=== PATIENT | male | born 1970 | race Caucasian/White ===

== ENCOUNTER 2021-02-25 17:38 | Emergency (ER) | payer OTHER, SELFPAY ==
[2021-02-25 17:39] VITALS: BP 150/90; PULSE 83; RESP 16; TEMP 36.9; O2SAT 97; BMI 21.0
--- NOTE | 2021-02-25 17:51 | EDS_ITS ---
HPI History of Present Illness Chief Complaint: Laceration Informant: patient Occured/Mechanism Comment: Rototiller esthela into leg Onset/Context/Timing Onset: Today Current Severity: Mild Maximum Severity: Moderate Narrative Narrative: Patient presents with laceration to the medial left ankle. He was using a Rototiller when one of the tines punctured his leg. Bleeding is under control at this time. Patient believes his last tetanus was between 5 and 10 years ago. [facility] Medical History Anxiety GERD (gastroesophageal reflux disease) Allergy/AdvReac Type Severity Reaction Status Date / Time cefdinir [From Omnicef] AdvReac Other Verified 02/25/21 17:41 Social History Smoking Status: Never smoker ROS ROS ED Constitutional Constitutional ED: Denies chills or fever(s) Eyes Eyes: Denies change in vision ENT ENT ED: Denies sore throat Cardiovascular Cardiovascular: Denies chest pain Respiratory/Chest Respiratory/Chest: Denies cough or dyspnea Gastrointestinal Gastrointestinal: Denies abdominal pain, diarrhea, nausea or vomiting Genitourinary Genitourinary ED: Denies dysuria Musculoskeletal Musculoskeletal: Denies back pain Integumentary Reports other Details: Medial left lower leg laceration ; Denies rash Neurologic Neurologic: Denies headache(s) or weakness Psychiatric Psychiatric: Denies anxiety or depression Endocrine Endocrinology: Denies polydipsia or polyuria Allergic/Immunologic Allergic/Immunologic ED: Denies urticaria EXAM Physical Exam Const Vital Signs: 02/25/21 17:39 Temperature 98.5 F Temperature Source Temporal Pulse Rate 83 Respiratory Rate 16 Blood Pressure 150/90 H Blood Pressure Mean 110 Pulse Ox 97 Oxygen Delivery Method Room Air Positive well nourished and well developed General Appearance ED: well developed HEENT normocephalic and atraumatic Eyes PERRL Neck full ROM Chest Wall inspection of chest normal Resp normal respiratory effort Cardio regular rate and regular rhythm Extremity Extremity Narrative: 3 cm laceration to the medial left lower leg. Bleeding controlled at this time. Strong distal pulses with normal sensation. Full range of motion at all joints. There is a second, 1/2 cm laceration on the medial aspect of the calcaneus. Neuro oriented x3 Sensorium / Orientation: alert Skin Skin Narrative: Laceration as above Trauma: other MDM MDM MDM Narrative Medical decision making narrative: Tetanus update is ordered. Left ankle x-rays are obtained. Treatment and Re-Evaluation Comments:: Per my interpretation no radiopaque foreign bodies noted in the wound. 3 cm laceration is anesthetized with 4 cc 1% lidocaine. Wound is thoroughly cleansed and irrigated. 5 simple interrupted sutures of 4-0 nylon are placed with good approximation. The 1/2 cm laceration on the medial calcaneus is sealed with Dermabond. Patient advised to have sutures removed in 7 to 10 days. Wound care instructions are provided. Procedures Lacerations 3 cm medial left leg laceration: Length: 1.18 in Depth: Sub Q Shape: Linear Prep: Shure-Clens Laceration repair: Irrigated, Lidocaine and Local Number of Sutures/Osmin: 5 Suture Information: Ethilon, Simple and 4-0 1/2 cm medial calcaneus laceration: Length: 0.2 in Depth: Skin Shape: Linear Prep: Shure-Clens Laceration repair: Dermabond and Irrigated Discharge Plan Triage Chief Complaint: Laceration ED Provider: Candy Ramachandran Dx/Rx/DC Orders Clinical Impression: Laceration of lower extremity Instructions: ED Laceration: All Closures Primary Care Provider: Jessa Dias Referrals: Jessa Dias MD [Primary Care Provider] - 10 Day for suture removal Disposition Disposition: Home, self care
--- NOTE | 2021-02-25 18:00 | RAD_ITS ---
STUDY: X-RAY - LEFT ANKLE REASON FOR EXAM: Male, 50 years old. injury TECHNIQUE: 3 view(s) of the ankle. COMPARISON: None. FINDINGS: Mild subcutaneous gas is present in the mid calf region and around the lower leg and ankle. A small linear laceration is seen in the medial soft tissues overlying the distal one third aspect of the tibia. No visualized fracture. Normal visualized distal tibia and fibula. Normal medial and lateral malleoli. Normal tibiotalar articulation and ankle mortise. Normal visualized talus and calcaneus. The visualized subtalar, talonavicular, calcaneocuboid and tarsal articulations are normal. RAD/Ankle min 3 Views IMPRESSION: 1. Mild subcutaneous gas is present in the mid calf region and around the lower leg and ankle. A small linear laceration is seen in the medial soft tissues overlying the distal one third aspect of the tibia. Electronically Signed: Palmer Lott MD at 18:49 EDT , Service support ,
[2021-02-25] MEDS: Lidocaine 1% (20 ml mdv) 20 ML Vial INFILT (18:14)
[2021-02-25] MEDS: Diphth,Pertuss(Acell),Tet Vac 0.5 ML Vial IM (18:14)
== END 2021-02-25 18:30 | disposition home or self-care (01) ==
LOC: ED 18:21
PROVIDERS: Emergency Provider Emergency Medicine; PCP Internal Medicine
DX: S91.012A Laceration without foreign body, left ankle, initial encounter (principal); S81.812A Laceration without foreign body, left lower leg, initial encounter; Z23 Encounter for immunization; W31.89XA Contact with other specified machinery, initial encounter; Y93.H2 Activity, gardening and landscaping; Y92.9 Unspecified place or not applicable; Y99.9 Unspecified external cause status; K21.9 Gastro-esophageal reflux disease without esophagitis; F41.9 Anxiety disorder, unspecified
CPT/HCPCS: 12002; 73610; 90715; 99283

== ENCOUNTER 2023-10-09 07:00 | Outpatient (RCR) | payer OTHER, SELFPAY ==
--- NOTE | 2023-09-12 09:01 | HP.PTEVAL ---
Patient's Visit Information Visit Information Visit Information: JACK WILLS is a 52 year old M referred to Physical Therapy by DERICK LONG with a diagnosis of 09/08/23 Left THR Anterior Approach. Date of Evaluation: 09/12/23 Physical Therapist: Gemini Santillan DPT Visit Plan Frequency: 3x /Week Duration: 4 Weeks Plan: Anterior Hip 09/08/23- Focus on LE strength/stabilization- functional mobility HEP Given IE: HR/TR, SLS, heel slide, quad set, SLR Subjective Subjective: Left Anterior Approach THR 09/08/[address] Borges due to Avascular Necrosis- he stayed one night in the hospital and then went home. He lives in a single story home and lives with his - with 3 stairs to enter with a hand rail. Fully I prior to surgery. 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 He is planning to have the other one done as well. Worst pain in the last 24 hours: 11/29 Agg: sitting to long or not using it. Reports stiffness. Reports discomfort is in the thigh- no pain past the knee- no N/T. Best: 10/01. Eases: movement. Restrictions- no crossing legs, no 90 degrees bend- no extension of the leg. Use an assistive device until cleared by MD. He has a leg assist to help him get in/out of bed. Sleep: in bed- disturbed. He is taking the pain medication as prescribed. His incision is covered by bandage and knows to take if off and is comfortable taking it off. PMHx: none Meds: omperozol, bemofaxine, oxy (every 6 hours), colase Objective Objective: Posture: Forward head, rounded shoulders- can correct with verbal cues Gait: axillary crutches- step through pattern- decreased stance on left LE Stairs: asc/desc 8 recip with bilateral HR- decreased control with descent- poor WB through left LE HR/TR: able with UE A SLS: 5 seconds with increased sway and muscle activation Sensation: WNL to gross touch bilateral LE Incision: did not observe due to bandage- educated on infection ROM: 10 degrees of extension with ambulation to 90 degrees of flexion in sitting, knee: 0-125 degrees with stretch at end range Strength: Ankle: 5/5, Knee: 5/5, Hip: Flexion: 10 Extn: 32, Abd: 4/5, Add: 4/5, IR/ER: not tested, Core: Fair minus Flex: HS: severe, Gastroc: severe Balance/Special Test Scores TUG Test Time Seconds: 18 WOMAC Total Score: 27 WOMAC Percentatge: 71.8800 Goals Goal 1:: Patient will report participation in home exercise program activities a minimum of 5 days per week, as adjunct to skilled physical therapy intervention in preparation for independent home management upon discharge. Goal Time Frame: 4-6 Weeks Goal 2:: Patient will decrease TUG test to less than 10 seconds with least restrictive device to demonstrate improved balance and increase safety with ADL?s. Goal 3:: Patient will ambulate >300 feet with a normalized gait pattern Goal Time Frame: 4-6 Weeks Goal 4:: Patient will report 80% improvement Goal Time Frame: 4-6 Weeks Goal 5:: Patient will asc/desc 8 stairs recip with no HR Goal Time Frame: 4-6 Weeks Rehabilitation Potential Physical Therapy Diagnosis: Patient presents with hypomobility s/p left anterior THR- he has decreased ROM, LE and core strength/stabilization, flex, proprioception and muscular endurance leading to abnormal gait and decreased ability to perform ADL's. Rehabilitation Potential: Good Anticipated Interventions Patient/Client Instruction: Educate patient on: Benefits of Fitness Program Therapeutic Exercise to Include: Strength training, Endurance training, Balance training, Coordination, Agility training, Body mechanics, Postural training, Flexibilty training, Gait and locomotor training, Neuromotor development, Relaxation training, Passive ROM, Active ROM, Dynamic Lumbar Stabilization and Scapular Strength/Stabilization For the Purpose of:: To improve muscle performance and motor function Functional Training to Include: Gait training TENS: Yes Cryotherapy (ice pack, ice massage): Yes Thermo therapy (hot pack): Yes Ultrasound (thermal/non thermal): No Text: Thank you for the opportunity to evaluate your patient. For Medicare and Medicare HMO plans, please review the plan of care and approve it. It will need to be FAXED BACK to us at [phone] for Medicare purposes. For Medicare only, by signing this I certify the plan of care. Please let me know if there are questions or concerns regarding this plan of care. Physician Signature: Date:
--- NOTE | 2023-10-09 08:03 | HP.PTDCSUM ---
Discharge Summary D/C summary: It has been my pleasure to treat JACK WILLS referred by DERICK LONG, with the diagnosis of 09/08/23 Left THR Anterior Approach for a total of 9 visit(s). Discharge Date: 10/09/23 Please see the following information for a summary of their discharge status. Subjective Subjective: Pt feels he is at the end of his rehab and pt is planning to return to work sometime next week. Pt will undergo a work functional capacity once back to work and has no restrictions from physician. Pain Left Hip: Pain Intensity (Out of 10): 0 Overall Improvement % Improvement: 85 Objective Objective/Function: L hip flex: 98 deg L hip ABD: 21 deg AROM, 30 deg PROM L hip ext: 11 deg AROM, 15 deg PROM MMT: flex L 31.1, R 29.1 ABD L 26.2, R 30.0, EXT L 26.4, R 30.6 GAIT: no apparent deviations Instructed standing hip flexor stretch to add to HEP Goals Goal 1:: Patient will report participation in home exercise program activities a minimum of 5 days per week, as adjunct to skilled physical therapy intervention in preparation for independent home management upon discharge. Goal Progress: Goal Met Goal 2:: Patient will decrease TUG test to less than 10 seconds with least restrictive device to demonstrate improved balance and increase safety with ADL?s. Goal Progress: Goal Met Goal 3:: Patient will ambulate >300 feet with a normalized gait pattern Goal Progress: Goal Met Goal 4:: Patient will report 80% improvement Goal Progress: Goal Met Goal 5:: Patient will asc/desc 8 stairs recip with no HR Goal Progress: Goal Met Plan Plan: Pt to d/c from therapy after meeting all goals and plans to return to work soon after physician provides clearance. No further therapy needs at this time. D/C Information Discharge Comments: pt. was seen for his L FLORI. Pt. was with functional mobility, strengthening and is now progressing with his HEP. He is overall doing well and will be DC from PT to HEP at this point in time. d/c sentence: If there are questions or concerns regarding this patient's physical therapy, please feel free to call me at [phone]. Thank you for the referral of this patient. Sincerely, Jefry Diaz Sipos, DPT Balance/Gait/Functional tests Balance/Special Test Scores TUG Test Time Seconds: 18 Tug Test: <20 sec.=mostly independent WOMAC Total Score: 27 WOMAC Percentage: 71.8800 Improvement % Improvement: 85
== END 2023-10-09 19:00 | disposition home or self-care (01) ==
LOC: PT 07:00
PROVIDERS: PCP Internal Medicine
DX: M87.052 Idiopathic aseptic necrosis of left femur (principal)
CPT/HCPCS: 97110; 97162

== ENCOUNTER → 2023-11-10 | Outpatient (CLI) | payer OTHER, SELFPAY ==
--- NOTE | 2023-11-10 12:00 | RAD_ITS ---
STUDY: X-RAY CHEST REASON FOR EXAM: Male, 53 years old. Cough, rule out pneumonia TECHNIQUE: PA and lateral views of the chest. COMPARISON: None. FINDINGS: There is hyperinflation of the lungs consistent with chronic obstructive lung disease (COPD). There is no demonstrated pleural abnormality. Normal size heart. Calcified right hilar lymph nodes. Normal visualized pulmonary arteries. Normal visualized aortic arch and descending thoracic aorta. There are mild degenerative changes of the visualized thoracic spine. Normal visualized ribs, clavicles, and shoulders. There is no demonstrated abnormality of the visualized soft tissue structures of the upper abdomen. RAD/Chest PA and Lateral IMPRESSION: Hyperinflation. No acute abnormality is seen. Electronically Signed: Pierre Lee MD at 12:45 EST ,
== END | disposition home or self-care (01) ==
PROVIDERS: PCP Internal Medicine; Referring Provider Nurse Practitioner Family; Visit Provider Nurse Practitioner Family
DX: R05.9 Cough, unspecified (principal)
CPT/HCPCS: 71046

== ENCOUNTER 2024-09-24 08:00 | Outpatient (RCR) | payer OTHER, SELFPAY ==
--- NOTE | 2024-08-17 16:27 | HP.PTEVAL_ITS ---
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 Date of Evaluation: 08/17/24 Physical Therapist: Herman Lund, PT, Cert MDT, OCS Visit Plan Frequency: 2x /Week Duration: 4 Weeks Plan: S/P ANTERIOR FLORI WITH PRECAUTIONS ON 08/09/24 PT INTERVENTIONS GAIT /BALANCE TRAINING ,ROM ,STRENGTHENING QUADS/HAMS/HIP , AND FUNCTIONAL STRENGTHENING Subjective Subjective: This 53 y/o male present to physical therapy with s/p right anterior THR on 08/09/24 at [facility] done DR Borges . Patient was d/c to next day with FWW and WBAT . Precaution anterior hip precautions. Patient RTD 09/03/24. Patient FLORI due avascular necrosis of bone and had left anterior hip replacement Sep 08. Patient has some burning and paresthesia in thigh . Pain medication Nacro . Patient symptoms can affects sleeping . Patient lives 1 story home with 3 steps with walk in shower. Tentative RTW after QOL the year. Patient condition affects QOL and function and RTW , Patient goal to RTW and function. SOCAIL: VOACTION: Building and ground maintenance Pain Right Hip: Pain Intensity (Out of 10): 4 Objective Objective: POSTURE: mild forward posture GAIT: ambulates with cane 2 point gait slight decrease stance time with antalgic gait RLE WBAT NEURO: denies paresthesia/tingling PALAPTION: unremarkable INCISION: well approximate anterior AROM: supine knee flexion 0-120 degrees ,hip extension 0 ,hip flexion 90 degrees ,hip abduction 30 degrees STAIRS: one step at time with rail MMT: ( peak force) right quads 29.9 ,hamstrings 17.3 ,hip extension 9.0 ,hip abd 0 ,hip flexion 23.1 Balance/Special Test Scores Lower Extremity Functional Score: 34 TUG Test Time Seconds: 10.59 WOMAC Total Score: 26 WOMAC Percentatge: 72.9200 Goals Goal 1:: Patient to be I with HEP for FLORI Goal Time Frame: 4-6 Weeks Goal 2:: Patient to normalize gait Goal Time Frame: 4-6 Weeks Goal 3:: Patient to improve WOMAC by 10-15 points to improve function Goal Time Frame: 4-6 Weeks Goal 4:: Patient to improve LFES score by 10-15 points to improve QOL Goal Time Frame: 4-6 Weeks Goal 5:: Patient improve peak force by 10-15 # to improve function and gait Goal Time Frame: 4-6 Weeks Goal 6:: Patient to demonstrate 75% improvement with less pain and improved function Goal Time Frame: 4-6 Weeks Rehabilitation Potential Physical Therapy Diagnosis: This patient underwent s/p FLORI anterior approach with decrease ROM ,weakness hip ,gait balance and RTW thus benefit from skilled PT Rehabilitation Potential: Good Anticipated Interventions Patient/Client Instruction: Educate patient on: Condition and Plan of Care For the Purpose of:: To decrease pain, To increase ROM, To improve muscle performance and motor function, To improve ability to perform ADL's, To increase tolerance to activity/condition/position, To improve ability of physical actions for home/community/work/leisure, To improve gait and locomotor functions, To improve health of tissue, To decrease soft tissue restriction, To increase flexibility/ROM, To improve balance and To improve tolerance to ADL's Therapeutic Exercise to Include: Strength training, Endurance training, Balance training, Gait and locomotor training and Active ROM Comment: quads/hams /hip For the Purpose of:: To decrease pain, To increase ROM, To improve muscle performance and motor function, To improve ability to perform ADL's, To increase tolerance to activity/condition/position, To improve gait and locomotor functions, To improve health of tissue, To improve endurance, To improve balance and To improve tolerance to ADL's Text: Thank you for the opportunity to evaluate your patient. For Medicare and Medicare HMO plans, please review the plan of care and approve it. It will need to be FAXED BACK to us at [phone] for Medicare purposes. For Medicare only, by signing this I certify the plan of care. Please let me know if there are questions or concerns regarding this plan of care. Physician Signature: Date:
--- NOTE | 2024-09-24 08:29 | HP.PTDCSUM ---
Discharge Summary D/C summary: It has been my pleasure to treat JACK WILLS referred by LATHA JIANG, with the diagnosis of AVASCULAR NECROISIS OF BONE OF RIGHT HIP for a total of 10 visit(s). Discharge Date: Please see the following information for a summary of their discharge status. Subjective Subjective: Patient doing well ready for d/c Plan for RTD maintenance Pain Right Hip: Pain Intensity (Out of 10): 0 Overall Improvement % Improvement: 90 Objective Objective/Function: POSTURE: WFL GAIT: ambulates reciprocal pattern NEURO: denies paresthesia/tingling PALAPTION: unremarkable INCISION: well approximate anterior AROM: supine knee flexion 0-120 degrees ,hip extension 15 ,hip flexion 100 degrees ,hip abduction 40 degrees STAIRS: one step at time with rail MMT: ( peak force) right quads 49.9 ,hamstrings 47.3 ,hip extension 32. 0 ,hip abd 32.9 ,hip flexion 52,8 Goals Goal 1:: Patient to be I with HEP for FLORI Goal Progress: Goal Met Goal 2:: Patient to normalize gait Goal Progress: Goal Met Goal 3:: Patient to improve WOMAC by 10-15 points to improve function Goal Progress: Goal Met Goal 4:: Patient to improve LFES score by 10-15 points to improve QOL Goal Progress: Goal Met Goal 5:: Patient improve peak force by 10-15 # to improve function and gait Goal Progress: Goal Met Goal 6:: Patient to demonstrate 75% improvement with less pain and improved function Goal Progress: Goal Met Plan Plan: D/C D/C Information d/c sentence: If there are questions or concerns regarding this patient's physical therapy, please feel free to call me at [phone]. Thank you for the referral of this patient. Sincerely, Herman Lund, PT, Cert MDT, OCS Balance/Gait/Functional tests Balance/Special Test Scores Lower Extremity Functional Score: 68 TUG Test Time Seconds: 5.54 Tug Test: <10 sec.=free mobile WOMAC Total Score: 0 WOMAC Percentage: 100 Improvement % Improvement: 90
== END 2024-09-24 12:34 | disposition home or self-care (01) ==
LOC: PT 08:00
PROVIDERS: PCP Internal Medicine; Referring Provider Nurse Practitioner Family; Visit Provider Nurse Practitioner Family
DX: M87.051 Idiopathic aseptic necrosis of right femur (principal)
CPT/HCPCS: 97110; 97140; 97162; 97530